=== PATIENT | female | born 1995 | race African-American/Black ===

== ENCOUNTER 2021-11-20 00:57 | Emergency (ER) | payer BC ==
[~2021-11-20] VITALS: Ht 170.2 cm; Wt 60.8 kg
--- NOTE | 2021-11-20 02:10 | NUR ---
DR. PINA AT BEDSIDE, MSE IN PROGRESS.
--- NOTE | 2021-11-20 02:37 | NUR ---
Patient discharged to home in stable condition. Written and verbal after care instructions given. Patient verbalizes understanding of instructions. Stressed follow up or return to ER for worsening s/s. Steady gait. Denies any BONNER/dizzyness. No SOB or labored breathing. A/O x4, clear spoeech, complete sentences. Picked up by family.
[2021-11-20 02:38] VITALS: BP 120/76
[2021-11-20 02:43] LABS: *URINE HCG, QUAL NEGATIVE (NEGATIVE)
== END 2021-11-20 02:39 | disposition home or self-care (01) ==
LOC: ER 01:06
DX: S09.90XA Unspecified injury of head, initial encounter (principal); X58.XXXA Exposure to other specified factors, initial encounter; Y92.89 Other specified places as the place of occurrence of the external cause
CPT/HCPCS: 84703; A4663